=== PATIENT | female | born 1980 | race Two or more races ===

== ENCOUNTER 2024-05-22 08:54 | Emergency (ER) | payer MEDICAID, OTHER ==
[~2024-05-22] VITALS: Ht 157.5 cm; Wt 61.2 kg
[2024-05-22] MEDS: KETOROLAC TROMETHAMINE 15 MG/ML VIAL IV ONE (09:30)
[2024-05-22 10:01] LABS: BASOPHILS % (AUTO) 0.4 % (0.0-2.0); EOSINOPHILS # (AUTO) 0.1 K/uL (0.0-0.7); EOSINOPHILS % (AUTO) 1.4 % (0.0-6.0); HEMATOCRIT 28 % (33-45); LYMPHOCYTES # (AUTO) 1.6 K/uL (0.8-4.8); LYMPHOCYTES % (AUTO) 29.5 % (20.0-44.0); MEAN CORPUSCULAR HEMOGLOBIN 24 PG (26.0-33.0); MEAN CORPUSCULAR HGB CONC 32 g/dl (31.0-36.0); MEAN CORPUSCULAR VOLUME 74 fL (82-100); MONOCYTES # (AUTO) 0.3 K/uL (0.1-1.30); MONOCYTES % (AUTO) 6.1 % (2.0-12.0); NEUTROPHILS # (AUTO) 3.3 K/uL (1.8-8.9); NEUTROPHILS % (AUTO) 62.6 % (43.0-81.0); PLATELET COUNT (AUTO) 337 K/uL (150-450); RED CELL DISTRIBUTION WIDTH 15.8 % (11.5-15.0); WHITE BLOOD COUNT (AUTO) 5.4 K/uL (4.3-11.0)
[2024-05-22 10:07] LABS: CALCIUM, SERUM 8.3 mg/dL (8.5-10.1); CREATININE 0.5 mg/dL (0.6-1.3); POTASSIUM 3.6 mmol/L (3.5-5.1)
[2024-05-22] MEDS: IV NS 0.9% 500 ML BAG IV ONE (10:28)
[2024-05-22 10:39] LABS: PREGNANCY TEST URINE QUAL NEGATIVE (NEGATIVE)
[2024-05-22] MEDS ORDERED: KETOROLAC TROMETHAMINE 15 MG/ML VIAL ONE (10:54)
[2024-05-22 11:27] LABS: PLATELET ESTIMATE ADEQUATE
[2024-05-22 12:04] VITALS: BP 111/78; TEMP 98; O2SAT 100
== END 2024-05-22 12:05 | disposition home or self-care (01) ==
LOC: ER 09:01
DX: M79.10 Myalgia, unspecified site (principal); R53.83 Other fatigue; R53.1 Weakness; D64.9 Anemia, unspecified; Z98.84 Bariatric surgery status
CPT/HCPCS: 99285; 96374; 71045; 96361; 93005; 85025; 80048; 82550; 84703; 36415; J1885